=== PATIENT | female | born 1970 | race American Indian/Alaskan Native ===

== ENCOUNTER 2018-03-16 17:25 | Emergency (ER) | payer OTHER, BC ==
[2018-03-16 17:52] VITALS: BMI 25.3
[2018-03-16 17:55] VITALS: RESP 18; O2SAT 100
[2018-03-16] MEDS: Naproxen 550 mg Tab PO STA ×2 (20:54→21:00)
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
[2018-03-16 22:25] VITALS: BP 142/80; PULSE 70; TEMP 97.9
--- NOTE | 2018-03-17 11:30 | RAD ---
Date of service: 03/16/2018 PROCEDURE: Cervical spine radiographs HISTORY: Pain. COMPARISON: None available. FINDINGS: Note that the study is somewhat limited due to partial obscuration of the tip of the odontoid by overlying occiput the open-mouth projection. BONES: No acute displaced or compression fractures nor retropulsed fragments. Vertebral bodies exhibit normal stature. Slight posterior subluxation C5 over C6 exacerbated in appearance by an osteophyte arising from the posterior inferior corner of the C5 segment. DISC SPACES: Mild multilevel degenerative spondylosis. Small marginal anterior osteophyte formation noted at the C5-C6, C6-C7 and to a lesser degree C4-C5 levels. . SOFT TISSUES: Normal. No prevertebral soft tissue swelling. OTHER FINDINGS: None. IMPRESSION: No acute fractures seen within limitation of the exam as above
== END 2018-03-16 22:25 | disposition home or self-care (01) ==
LOC: ED 17:25
DX: S16.1XXA Strain of muscle, fascia and tendon at neck level, initial encounter (principal); V49.9XXA Car occupant (driver) (passenger) injured in unspecified traffic accident, initial encounter

== ENCOUNTER 2018-06-04 12:37 | Outpatient (CLI) | payer BC | END 2018-06-04 12:38 | disposition home or self-care (01) | LOC: RAD 12:37 ==

== ENCOUNTER 2018-06-18 12:31 | Outpatient (CLI) | payer SELFPAY, BC | END 2018-06-18 12:32 | disposition home or self-care (01) | LOC: RAD 12:31 ==